=== PATIENT | male | born 1950 ===

== ENCOUNTER 2021-01-01 11:22 | Outpatient (CLI) | payer MEDICARE, BC, SELFPAY ==
--- NOTE | 2021-01-01 | DI.RAD_ITS ---
Exam(s) XR ELBOW LT COMPLETE EXAM: XR ELBOW LT COMPLETE CLINICAL HISTORY: LT ELBOW PAIN,M25.522,RADIATING UP HUMERUS WI/BURSITIS S/P BUMPING LADDER. TECHNIQUE: 2D digital imaging was performed of the left elbow. Three images were obtained. AP, lat eral and oblique views were obtained. COMPARISON: No exams were available for comparison FINDINGS: BONES: No acute fracture is present. No bony destructive lesion is seen. JOINTS: The elbow is normally aligned. No joint effusion is seen. SOFT TISSUE: Normal. IMPRESSION: No acute abnormality. DATA REPOSITORY: RADIATION DOSE DELIVERED:
== END 2021-01-01 11:42 ==
PROVIDERS: Visit Provider Nurse Practitioner Family
DX: M25.522 Pain in left elbow (principal); S50.02XA Contusion of left elbow, initial encounter
CPT/HCPCS: 73080

== ENCOUNTER 2021-01-01 19:44 | Outpatient (REF) | payer MEDICARE, BC, SELFPAY ==
[2021-01-01 16:04] LABS: Abs Immature Grans 0.04 10^3/uL (0.0-0.06); Absolute Basophil Count 0.02 10^3/uL (0.0-0.2); Absolute Lymphocyte Count 1.38 10^3/uL (1.2-3.4); Absolute Monocyte Count 1.31 10^3/uL (0.1-0.8); Basophils % 0.2; ESR 27 mm/hr (0-20); Eosinophils % 0.3; HCT 41.1 % (40.0-50.0); HGB 13.9 g/dL (13.5-17.5); Immature Grans % 0.3; Lymphocytes % 11.7; MCH 31.3 pg (27.0-33.0); MCHC 33.8 % (32.0-36.0); MCV 92.6 fL (80-95); MPV 10.5 fL (8.0-11.0); Monocytes % 11.1; Neutrophils % 76.4; Nucleated RBC 0 %; Platelet Count 207 10^3/uL (130-400); RBC 4.44 10^6/uL (4.36-5.78); RDW 12.8 % (11.8-14.1); WBC 11.82 10^3/uL (4.4-10.8)
[2021-01-01 16:05] LABS: Absolute Eosinophil Count 0.04 10^3/uL (0.0-0.7); Absolute Neutrophil Count 9.03 10^3/uL (1.2-6.7)
[2021-01-01 17:34] LABS: ALT 48 U/L (16-63); AST 30 U/L (15-37); Alkaline Phosphatase 76 U/L (46-116); BUN 14 mg/dL (7-18); Bilirubin, Total 0.8 mg/dL (0.2-1.0); C-Reactive Protein 17.29 mg/dL (0.0-0.3); CREATININE 1.5 mg/dL (0.70-1.30); Chloride 107 mmol/L (98-107); Estimated GFR 46.27 (mL/min/1.73m2); Glucose 122 mg/dL (74-106); Potassium 4.2 mmol/L (3.5-5.1); Sodium 142 mmol/L (136-145); Total Protein 7.1 g/dL (6.4-8.2); Uric Acid 4.7 mg/dL (3.5-7.2)
== END 2021-01-01 19:45 | disposition home or self-care (01) ==
LOC: LBN 19:44
PROVIDERS: Referring Provider Nurse Practitioner Family; Visit Provider Nurse Practitioner Family
DX: M25.522 Pain in left elbow (principal)
CPT/HCPCS: 80053; 85652; 84550; 85025; 86140

== ENCOUNTER → 2024-10-13 08:47 | Outpatient (BNVA) | payer MEDICARE, SELFPAY | PROVIDERS: Visit Provider Nurse Practitioner Gerontology | DX: N40.0 Benign prostatic hyperplasia without lower urinary tract symptoms (principal); N18.9 Chronic kidney disease, unspecified; R39.9 Unspecified symptoms and signs involving the genitourinary system; R35.0 Frequency of micturition; R39.11 Hesitancy of micturition; R60.0 Localized edema; J45.909 Unspecified asthma, uncomplicated | CPT/HCPCS: 99205; 51798 ==

== ENCOUNTER 2024-11-08 03:51 | Outpatient (CLI) | payer MEDICARE, SELFPAY ==
--- NOTE | 2024-11-08 07:00 | DI.US_ITS ---
Exam(s) US RENAL EXAM: US RENAL CLINICAL HISTORY: r/o hydro, bph, chronic kidney disease, N40.0, N18.9 TECHNIQUE: Ultrasound of both kidneys performed using standard protocol. COMPARISON: No exams were available for comparison FINDINGS: RIGHT KIDNEY: Measures 10.2 cm in length. There is a small 7 mm midpole level cortical cyst. This does not require further workup.. Normal cortical thickness and corticomedullary differentiation .No solid masses No intrarenal calculi nor hydronephrosis. LEFT KIDNEY: Measures 9.7 cm in length. Normal cortical thickness and corticomedullary differentiaion. No cysts. No solids masses. At the midpole level there is a 3 millimeter hyperechoic focus in the cortex which may represent a nonobstructive small calculus. No hydronephrosis. URINARY BLADDER: Prevoid volume is 59 cc Postvoid volume is 9 cc No evidence of bladder mass nor diverticuli. Prostate size appears normal, measuring 2.3 x 2.1 x 2.7 cm Ureterovesical jets: Both identified and appear symmetrical IMPRESSION: 1. Possible small 3 mm nonobstructive calculus at the midpole level of the left kidney. No other significant focal findings in the kidneys. 2. No obvious abnormalities in the urinary bladder although the bladder is only filled with 59 mL of urine. DATA REPOSITORY:
== END 2024-11-08 04:11 ==
LOC: DI 03:51
PROVIDERS: Visit Provider Nurse Practitioner Gerontology
DX: N40.0 Benign prostatic hyperplasia without lower urinary tract symptoms (principal); N18.9 Chronic kidney disease, unspecified; N20.0 Calculus of kidney
CPT/HCPCS: 76770

== ENCOUNTER → 2024-11-10 07:41 | Outpatient (BNVA) | payer MEDICARE, SELFPAY | PROVIDERS: Visit Provider Nurse Practitioner Gerontology | DX: N18.9 Chronic kidney disease, unspecified (principal); N40.0 Benign prostatic hyperplasia without lower urinary tract symptoms; N32.81 Overactive bladder; R60.0 Localized edema | CPT/HCPCS: 99214 ==